=== PATIENT | female | born 1950 | race Caucasian/White ===

== ENCOUNTER 2022-09-09 12:34 | Emergency (ER) | payer MEDICARE, MEDICAID ==
[~2022-09-09] VITALS: Ht 180.3 cm; Wt 102.3 kg
[2022-09-09 12:45] VITALS: BP 143/86
== END 2022-09-09 15:01 | disposition home or self-care (01) ==
LOC: ER 12:35
DX: S93.401A Sprain of unspecified ligament of right ankle, initial encounter (principal); X58.XXXA Exposure to other specified factors, initial encounter; Y93.89 Activity, other specified; Y92.89 Other specified places as the place of occurrence of the external cause; Y99.8 Other external cause status
CPT/HCPCS: 73610; 73630; 99284; L4360